=== PATIENT | female | born 1995 | race Caucasian/White ===

== ENCOUNTER 2017-07-14 00:18 | Emergency (ER) | payer SELFPAY ==
[~2017-07-14] VITALS: Ht 165.1 cm; Wt 56.7 kg
[2017-07-14] MEDS ORDERED: ONDANSETRON 4 MG TAB.RAPDIS SL ONE (00:30)
[2017-07-14] MEDS ORDERED: IBUPROFEN 400 MG TABLET PO ONE (00:30)
--- NOTE | 2017-07-14 00:33 | NUR ---
PT BIB [facility] WITH A C/O OVERDOSE ON HEROIN. PT'S BOYFRIEND CALLED 911. PT ARRIVED DROWSY, BUT ABLE TO TALK. PT IS ANSWERING ALL QUESTIONS AND STATED THAT SHE DID NOT OVERDOSE ON PURPOSE. PT IS ON THE MONITOR AND CONTINUOUS PULSE OX. RESP EVEN AND UNLABORED. PT IS ON 2L O2 VIA NC. PT WAS SATURATING AT 94% ON RA AND IS NOW SATURATING AT 100%. UNABLE TO OBTAIN AN IV AT THIS TIME.
--- NOTE | 2017-07-14 01:05 | NUR ---
20G IV STARTED IN RT WRIST BY ED, WAD BLANKING PRESS ADJUSTER.
[2017-07-14] MEDS ORDERED: IBUPROFEN 400 MG TABLET ONE (01:24)
[2017-07-14] MEDS ORDERED: ONDANSETRON 4 MG TAB.RAPDIS ONE (01:24)
--- NOTE | 2017-07-14 01:30 | NUR ---
PT TOLERATED PO WELL.
--- NOTE | 2017-07-14 02:45 | NUR ---
CALLING PT'S BOYFRIEND, ALEA PROSPER, . ALEA TO COME BACK AND TAKE PT HOME VIA [facility].
--- NOTE | 2017-07-14 03:18 | NUR ---
IV removed. Catheter intact and site benign. Pressure and 4x4 applied to site. No bleeding noted.
--- NOTE | 2017-07-14 03:19 | NUR ---
PT CHANGED INTO HER OWN CLOTHES AND PT'S BOYFRIEND IS ON HIS WAY BACK TO PICK HER UP.
--- NOTE | 2017-07-14 03:42 | NUR ---
Patient discharged to home in stable condition. Written and verbal after care instructions given. Patient verbalizes understanding of instruction AND RX. PT AMBULATED OUT TO THE LOBBY WITH A STEADY GAIT. PT STATED THAT SHE IS WAITING THERE TO GET PICKED UP BY HER BOYFRIEND. VSS.
[2017-07-14 03:43] VITALS: BP 144/87
== END 2017-07-14 03:44 | disposition home or self-care (01) ==
LOC: ER 00:19
DX: T40.1X1A Poisoning by heroin, accidental (unintentional), initial encounter (principal); F11.10 Opioid abuse, uncomplicated; G43.909 Migraine, unspecified, not intractable, without status migrainosus; Z88.0 Allergy status to penicillin; Y92.89 Other specified places as the place of occurrence of the external cause
CPT/HCPCS: 99284; A4606; Q0162; Z7610